=== PATIENT | female | born 1970 | race Caucasian/White ===

== ENCOUNTER 2024-06-09 09:11 | Inpatient (IN) | payer OTHER, SELFPAY ==
[2024-06-09] VITALS (9 sets, daily range): BP systolic 107–148; BP diastolic 56–93; PULSE 62–94; RESP 16–18; TEMP 35.9–37.1; O2SAT 92–100; BMI 31.7
--- NOTE | ~2024-06-09 | CT_ITS ---
EXAMINATION: CT ABDOMEN AND PELVIS WITHOUT CONTRAST CLINICAL INFORMATION: Right flank pain. COMPARISON: None available. TECHNIQUE: Multidetector volumetric imaging was performed from the superior aspect of the liver through the pubic symphysis. Sagittal and coronal reformatted images were obtained on the technologist's workstation. This CT examination was performed using dose optimization techniques as appropriate, variously including the following: *Automated exposure control *Adjustment of mA and/or kV according to patient size (this includes techniques or standardized protocols for targeted exams where dose is matched to indication/reason for exam; i.e. extremities or head) *Use of iterative reconstruction technique DLP: 572 mGy-cm FINDINGS: Inadequate evaluation of the intra-abdominal solid organs and vascular structures due to lack of IV contrast. LUNG BASES: 1 mm calcified nodule, left lung base likely granuloma. Subsegmental atelectasis, right middle lung lobe and lingula. No acute airspace disease in the included lung bases. LIVER, GALLBLADDER, AND BILIARY TREE: Liver measures 14 cm. There are least 2 hypodensities in the parenchyma of the largest measures 1.5 cm. 2 cm, peripheral calcified/onnion-shaped intraluminal lesion, gallbladder. No gross pericholecystic fluid collection or gallbladder wall thickening. No intrahepatic or extrahepatic biliary ductal dilatation. PANCREAS: No peripancreatic fluid collection. No main pancreatic ductal dilatation. SPLEEN: Measures 6 cm. ADRENAL GLANDS: No nodular lesions. KIDNEYS AND URETERS: Right kidney: There is a cluster of 1 mm maximum diameter and 5 mm maximal craniocaudal length dimension calculi/calculus distal right ureter near the vesicoureteral junction. There is hydroureteronephrosis, mild to moderate. Left kidney: No hydronephrosis. No nephrolithiasis. BLADDER: Fluid-filled nearly collapsed. GASTROINTESTINAL TRACT: Appendix is normal. Abundant stool. No intestinal obstruction pattern. No ascites. No pneumoperitoneum. No pneumatosis intestinalis. ABDOMINAL WALL: Small fat-containing umbilical hernia and diastases abdominal rectus muscles. LYMPH NODES: Specific prominent lymph nodes, mesenteric, retroperitoneum and inguinal. VASCULAR: No aneurysm, abdominal aorta. PELVIC VISCERA: No gross masses in the adnexa. OSSEOUS STRUCTURES: Spondylosis, L4-5 and L5-S1 levels. Calcification in the posterior intervertebral disc L5-S1. Sclerosis of the sacroiliac joints and vacuum phenomenon. CT/CT abdomen pelvis wo IV con IMPRESSION: 1 x 5 mm obstructing calculus distal right ureter resulting in vgud-ta-xcclwypt right hydroureteronephrosis. Cholelithiasis. Small fat-containing umbilical hernia. Nonspecific hypodense lesions in the liver. Statistically may represent cyst versus hamartoma versus hemangioma. Fleischner guidelines were followed. Electronically signed by: Bruce Quintanilla MD 06/09/2024 11:57 AM [facility]
[2024-06-09 09:39] LABS: MANUAL DIFF FLAG NO
[2024-06-09 09:41] LABS: Appearance Urine Turbid; Color Urine Dark Yellow; Glucose Urine UA Negative (Negative); Leukocyte Esterase Urine Small (1+) (Negative); Nitrite Urine Negative (Negative); PH 5.5 (5.0-9.0); Specific Gravity - Urine >= 1.030 (1.005-1.025); UMIC TRIGGER UACC YES; Urine Blood Large (3+) (Negative); Urine Ketones Trace mg/dL (Negative); Urine Protein 30 (1+) mg/dL (Neg-Trace)
[2024-06-09 09:45] LABS: Basophils Absolute Auto 0.1 X10*3/uL (0.0-0.2); Basophils Percent Auto 0.7 % (0-2); Eosinophils Absolute Auto 0.1 X10*3/uL (0.0-0.4); Eosinophils Percent Auto 1.2 % (0-4); Hematocrit 37.7 % (37.0-47.0); Hemoglobin 12.7 g/dl (12.0-16.0); Imm Gran Abs Auto 0.01 X10*3/uL (0.00-0.03); Imm Gran Pct Auto 0.1 % (0.0-0.4); Lymphocytes Percent Auto 26.1 % (20-40); Mean Corpuscular HGB Conc 33.7 g/dl (31.0-35.0); Mean Corpuscular Hemoglobin 29.3 pg (27.0-33.0); Mean Corpuscular Volume 86.9 fL (80.0-98.0); Mean Platelet Volume 10.4 fL (9.4-12.3); Monocytes Absolute Auto 0.6 X10*3/uL (0.1-1.2); Monocytes Percent Auto 8.2 % (2-11); Neutrophils Absolute Auto 4.9 x10*3/uL (2.0-8.3); Neutrophils Percent Auto 63.7 % (45-73); Platelet Count 320 X10*3/uL (160-400); Red Blood Count 4.34 X10*6/uL (4.20-5.50); Red Cell Distribution Width 12.4 % (11.0-16.0); White Blood Count 7.7 X10*3/uL (4.8-10.8)
[2024-06-09 09:49] LABS: Bacteria Urine 4+ (None Seen); Calcium Oxalate Crystals Urine Present; RBC Urine >20 /HPF (0-2); Squamous Epithelial Cell Urine >20 /HPF (0-2); UACC Culture Trigger YES
[2024-06-09 10:03] LABS: Alanine Aminotransferase 34 U/L (0-31); Albumin Level 4.2 g/dL (3.5-5.0); Alkaline Phosphatase 65 U/L (39-117); Anion Gap 10 (12-20); Aspartate Amino Transferase 30 U/L (5-31); Bilirubin Total 0.7 mg/dL (0.0-1.0); Blood Urea Nitrogen 13 mg/dL (9-16); Calcium 9.6 mg/dL (8.4-10.2); Carbon Dioxide 26 mmol/L (22-29); Chloride 106 mmol/L (96-108); Estimated Glomerular Filt Rate > 60; Glucose Random 101 mg/dL (60-115); Potassium 3.9 mmol/L (3.3-5.1); Sodium 138 mmol/L (135-145); Total Protein 7.6 g/dL (6.5-8.0)
--- NOTE | 2024-06-09 10:17 | ED.ABDPAIN ---
HPI - Abdominal Pain General Chief Complaint: Abdominal Pain Stated Complaint: lower abd pain Time Seen by Provider: 06/09/24 10:01 Source: patient and RN notes reviewed Mode of arrival: ambulatory Limitations: no limitations History of Present Illness ED Provider: Mila Tam PA-C HPI narrative: This is a 53-year-old female, with a history of ADHD, who presents emergency department with complaints of right flank pain which started yesterday. Patient states that her symptoms have been waxing and waning in severity, thought it was gas at 1st however states that the pain has been increasingly more painful and more regular. She states that she does have some urinary frequency and urgency. Denies history of kidney stones in the past. No history of abdominal surgeries in the past. She endorses nausea, no vomiting. No fevers, chills, chest pain, shortness of breath. Denies any other complaints or concerns at this time. MD elicited complaint: abdominal pain and flank pain Pain Consistency: constant Exacerbating factors: nothing Relieving factors: nothing Related Data Allergies Allergy/AdvReac Type Severity Reaction Status Date / Time No Known Allergies Allergy Verified 06/09/24 09:20 Review of Systems Review of Systems Yes all other systems are reviewed and are negative Constitutional: Reports as per [facility] Social History Social History Advance Directives: No Advance Directives Information Provided: Yes Do you have a plan to hurt others: No Plan Physical Exam ED Vital Signs: Vital Signs - 24 hr 06/09/24 09:17 06/09/24 11:17 Temperature 97.3 F Pulse Rate 87 69 Respiratory Rate 18 18 Blood Pressure 127/93 H 148/66 H Pulse Oximetry 99 100 Oxygen Delivery Method Room Air BMI result Body Mass Index 31.7 Const Other: Writhing in pain, appears to be uncomfortable secondary to pain in right flank General: cooperative Orientation/consciousness: patient oriented x3 Limitations: no limitations HENMT Head: Yes normal to inspection, Yes normocephalic and Yes atraumatic Ears: hearing grossly normal bilaterally General nose exam: Normal external nose present Face and sinus: Yes normal facial exam Mouth: Normal oral and palatal mucosa present, oropharynx normal and moist mucous membranes Throat: Yes posterior oropharynx normal Eyes General: appearance normal, both eyes and all related structures Eyelids: Yes eyelids normal Conjunctivae: conjunctivae normal Sclerae: sclerae normal Pupils: Equal, round and reactive pupils present EOM: EOMs intact bilaterally Neck Neck: Yes normal visual inspection, Yes full ROM and Yes no lymphadenopathy Lymphatic: no lymphadenopathy noted Chest Chest palpation & inspection: normal inspection of the chest Resp Effort & Inspection: normal respiratory effort and able to speak in complete sentences Auscultation: clear to auscultation bilaterally, no crackles, no rales, no rhonchi and no wheezes Cardio Rate: regular rate Rhythm: regular rhythm Heart sounds: S1 normal heart sound present and S2 normal heart sound present GI Other: Abdomen is soft with tenderness palpation along the right flank, no rebound or guarding Inspection: Yes normal to inspection Skin General skin exam: no rashes or lesions noted Trauma: no lacerations or abrasions Wounds: no wounds Neuro General: patient oriented x3 and moves all extremities Cranial nerves: Yes Equal, round and reactive pupils present Extrem General: Yes normal to inspection Right upper extremity: normal to inspection Left upper extremity: normal to inspection Right lower extremity: normal to inspection Left lower extremity: normal to inspection Course Reevaluation(s) Reevaluation #1: Patient re-evaluated, still having significant pain, will re medicate however awaiting repeat blood pressure. Time: 10:57 Reevaluation #2: Patient medicated with Dilaudid 1 mg IV; preliminary read of CT scan revealing a large ? Mass versus stone within the gallbladder, I reviewed this with my attending physician, Dr. Reyes who recommends reaching out to on-call surgeon prior to official report. We will continue to closely monitor. Time: 11:33 Reevaluation #3: Patient is resting comfortably, awaiting official radiology report. Time: 11:58 Additional Reevaluation(s): 06/09/2024 - 1209 - 1x5mm obstructing calculus distal right ureter resulting in mild to moderate right hydrourteronephrosis, cholelithiasis, small fat containing umbilical hernia, and nonspecific hypodense lesion in the liver, may represent cyst cerus hamartoma vs hemangioma. Dr. Hurtado reports nothing to do gallbladder at this time. 1252 - reached out to Dr. Gibbs for recommendations. Patient medicated with IV Toradol secondary to ongoing pain. 1400 - still have yet to hear back from urology for recommendations, reached out to hospitalist as patient needs to be admitted for intractable pain, hospitalist recommending Urology admission as hospitalist services overloaded and would likely be more appropriate to be admitted through the Urologic Services. Sent 2nd message out to Dr. Gibbs awaiting response. 1528 - I spoke to Dr. Hillman, who will add on a cystoscopy this evening. Patient made NPO. Admitted to the urologic service. Medical Decision Making Medical Decision Making [facility] Narrative: This is a 53-year-old female who presents emergency department with complaints of right flank pain, and nausea starting yesterday. On arrival, vital signs within normal limits, she was afebrile, she appears to be uncomfortable secondary to right-sided flank pain. Difficult to get on initial HPI given severity of pain, medicated with morphine 4 mg and Zofran 4 mg. Plan: Labs, UA, CT abdomen pelvis Differential Diagnosis Differential Diagnoses: The differential diagnosis associated with the presentation includes Obstructive uropathy, nephrolithiasis, acute cystitis Admission/Observation Consideration of admission/observation: Escalation of care including admission/observation considered Lab Data [facility] Lab Attestation statement: I reviewed the patient's lab results. No leukocytosis, stable H&H, liver transaminases within normal limits 06/09/24 09:27 06/09/24 09:27 Labs: Lab Results 06/09/24 06/09/24 Range/Units 09:27 09:34 WBC 7.7 (4.8-10.8) X10*3/uL RBC 4.34 (4.20-5.50) X10*6/uL Hgb 12.7 (12.0-16.0) g/dl Hct 37.7 (37.0-47.0) % MCV 86.9 (80.0-98.0) fL MCH 29.3 (27.0-33.0) pg MCHC 33.7 (31.0-35.0) g/dl RDW 12.4 (11.0-16.0) % Plt Count 320 (160-400) X10*3/uL MPV 10.4 (9.4-12.3) fL Immature Gran % (Auto) 0.1 (0.0-0.4) % Neut % (Auto) 63.7 (45-73) % Lymph % (Auto) 26.1 (20-40) % [place] % (Auto) 8.2 (2-11) % Eos % (Auto) 1.2 (0-4) % Baso % (Auto) 0.7 (0-2) % Lymph # (Auto) 2.0 (1.2-4.9) X10*3/uL [place] # (Auto) 0.6 (0.1-1.2) X10*3/uL Eos # (Auto) 0.1 (0.0-0.4) X10*3/uL Baso # (Auto) 0.1 (0.0-0.2) X10*3/uL Abs Immat Gran (auto) 0.01 (0.00-0.03) X10*3/uL Absolute Neuts (auto) 4.9 (2.0-8.3) x10*3/uL Absolute Nucleated RBC 0.000 (0.0-0.012) X10*3/uL Nucleated RBC % (auto) 0.0 (0.0-0.2) /100WBC Sodium 138 (135-145) mmol/L Potassium 3.9 (3.3-5.1) mmol/L Chloride 106 (96-108) mmol/L Carbon Dioxide 26 (22-29) mmol/L Anion Gap 10 L (12-20) BUN 13 (9-16) mg/dL Creatinine 0.79 (0.5-1.4) mg/dL Estim Creat Clear Calc 85.0 Estimated GFR > 60 Random Glucose 101 (60-115) mg/dL Calcium 9.6 (8.4-10.2) mg/dL Total Bilirubin 0.7 (0.0-1.0) mg/dL AST 30 (5-31) U/L ALT 34 H (0-31) U/L Alkaline Phosphatase 65 (39-117) U/L Total Protein 7.6 (6.5-8.0) g/dL Albumin 4.2 (3.5-5.0) g/dL Lipase 21 (8-78) U/L Urine Color Dark Yellow Urine Appearance Turbid Urine pH 5.5 (5.0-9.0) Ur Specific [place] >= 1.030 H (1.005-1.025) Urine Protein 30 (1+) H (Neg-Trace) mg/dL Urine Glucose (UA) Negative (Negative) mg/dL Urine Ketones Trace (Negative) mg/dL Urine Blood Large (3+) H (Negative) Urine Nitrite Negative (Negative) Ur Leukocyte Esterase Small (1+) H (Negative) Urine RBC >20 H (0-2) /HPF Urine WBC 11-20 H (0-5) /HPF Ur Squamous Epith Cells >20 (0-2) /HPF Calcium Oxalate Crystal Present Urine Bacteria 4+ (None Seen) Hyaline Casts 6-10 (0-2) /LPF Radiology Impression Discussion of test interpretation with radiology: I have reviewed the radiologist's reading. External Record Review External record reviewed: Inpatient record, Office record, Outpatient record, Prior outpatient labs, Prior outpatient radiology, Primary care record and Outside ED record Medications Administered Discontinued Medications Generic Name Dose Route Start Last Admin Trade Name Freq PRN Reason Stop Dose Admin Hydromorphone HCl 1 mg 06/09/24 10:58 06/09/24 11:19 Hydromorphone Hcl 1 Mg/Ml Syringe IVPUSH 06/09/24 10:59 1 mg ONCE ONE Administration Protocol Sodium Chloride 1,000 mls @ 999 mls/hr 06/09/24 10:22 06/09/24 10:31 Ns IV 06/09/24 11:22 999 mls/hr .Q1H1M ONE Administration Ketorolac Tromethamine 15 mg 06/09/24 12:55 06/09/24 13:43 Ketorolac Tromethamine 15 Mg/Ml Vial IVPUSH 06/09/24 12:56 15 mg ONCE ONE Administration Metoclopramide HCl 10 mg 06/09/24 12:39 06/09/24 13:43 Metoclopramide Hcl 10 Mg/2 Ml Vial IVPUSH 06/09/24 12:40 10 mg ONCE ONE Administration Morphine Sulfate 4 mg 06/09/24 10:21 06/09/24 10:31 Morphine Sulfate 4 Mg/Ml Cartridge IVPUSH 06/09/24 10:22 4 mg ONCE ONE Administration Protocol Ondansetron HCl 4 mg 06/09/24 10:21 06/09/24 10:32 Ondansetron Hcl 4 Mg/2 Ml Vial IVPUSH 06/09/24 10:22 4 mg ONCE ONE Administration Critical Care Time Critical Care Time Critical Care Time: Yes Total Critical Care Time: 35 Attestation: I have personally provided critical care time exclusive of time spent on separately billable procedures. Time includes review of lab data, radiology results, discussion with consultants, and monitoring for potential decompensation. Intervention performed as documented. Discharge Plan Discharge Clinical Impression: Calculus of distal right ureter, Hydronephrosis, Abnormal CT of the abdomen Patient Disposition: Admitted As Inpatient Print Language: [place]
[2024-06-09] MEDS: 0.9 % Sodium Chloride 1,000 ML 999 ML IV (10:31)
[2024-06-09] MEDS: Morphine Sulfate 4 MG/ML CARTRIDGE IVPUSH (10:31)
[2024-06-09] MEDS: ondansetron HCL 4 MG/2 ML VIAL IVPUSH ×2 (10:32→18:49)
[2024-06-09] MEDS: HYDROmorphone HCl 1 MG/ML SYRINGE IVPUSH (11:19)
[2024-06-09 11:57] LABS: Lipase 21 U/L (8-78)
[2024-06-09] MEDS: Metoclopramide HCl 10 MG/2 ML VIAL IVPUSH (13:43)
[2024-06-09] MEDS: Ketorolac Tromethamine 15 MG/ML VIAL IVPUSH (13:43)
--- NOTE | 2024-06-09 16:00 | PC.NURSE ---
report given to BAND MAKERREN Adorno
[2024-06-09] MEDS: Ketorolac Tromethamine 30 MG/ML VIAL IVPUSH (16:17)
[2024-06-09] MEDS: Lactated Ringers 1,000 ML 125 ML IVCONT (16:17)
--- NOTE | 2024-06-09 16:51 | PC.NURSE ---
MD Hillman to bedside discussing cystoscopy in OR
--- NOTE | 2024-06-09 17:00 | PHA.MEDREC ---
Addendum entered by Lio Sharpe [facility] 06/09/24 17:59: Med rec reviewed Original Note: Pharmacy Consult ? Medication Reconciliation Pharmacy has completed the medication reconciliation. Confirmed medications with patient. Patient confirmed she is taking Gabapentin 300mg caps and states she is taking it once daily instead of BID and states shes been doing it like that for a while . She confirmed her Estradiol Patch once every 2 weeks and states she is due for it tomorrow. She confirmed her Vyvanse 60mg tabs and states she takes roughly 1/2 tab to 1 tablet as needed and she took a 1/2 tab yesterday. She confirmed her Metformin 500mg tab but stated too she is only using it for the weight gain from the Abilify so she only takes a 1/2 tablet of that BID. She confirmed she still takes the Abilify 5mg tab but only takes a half a tablet when needed for her mood. She confirmed she still takes the Naltrexone and states she takes 3mg once daily. I have no claims for Naltrexone, I spoke with the patient about that and she claims it was either filled at [facility] in [place] or [facility] in [place], I called and spoke to [facility] in [place] and they stated they no claims for Naltrexone for that patient, I called and spoke with [facility] and they have no claims for at least 2 years with them. She claims she has not started the Memantine 7mg tab but has them at home. She stated she takes Fish oil, Magnesium 600mg, CoQ10 and Vitamin D3 5000iu for OTC medications but states she is not consistent with taking them everyday and she hasn't really taken any of them in a few days. She claims she takes took a half tablet of the Metformin 500mg tab this morning, she took the Xiidra, Vvyanse, Progesterone, Gabapentin and Naltrexone yesterday and the rest of them she was unsure about.
--- NOTE | 2024-06-09 17:07 | PM.UROCN ---
History of Present Illness Consult details Consult date: 06/09/24 Narrative: CC: Distal right ureteric stone with hydronephrosis 53-year-old female Presents with intermittent history of right flank pain Reach crescendo this morning Associated nausea but no vomiting Initial thought was that had been related constipation. Did complain of some urgency and frequency No history of kidney stones Imaging - CT There is a cluster of 1 mm maximum diameter and 5 mm maximal craniocaudal length dimension calculi/calculus distal right ureter near the vesicoureteral junction.There is hydroureteronephrosis, mild to moderate. Cholelithiasis Recommend cystoscopy, right retrograde, right ureteroscopy with laser lithotripsy and stent placement Review of Systems Constitutional: Constitutional: Reports as per HPI and Reports no additional constitutional complaints Cardiovascular: Cardiovascular: Reports as per HPI and Reports no additional cardiovascular complaints Respiratory: Respiratory: Reports as per HPI and Reports no additional respiratory complaints Gastrointestinal: Gastrointestinal: Reports as per HPI and Reports no additional gastrointestinal complaints Genitourinary: Genitourinary: Reports as per HPI Musculoskeletal: Musculoskeletal: Reports no additional musculoskeletal complaints and Reports as per HPI Neurologic: Reports system reviewed and no additional complaints, except as documented and Reports as per HPI PMFSH Social History Social History Smoked in Last 30 Days: No Advance Directives: No Advance Directives Information Provided: Yes Do you have a plan to hurt others: No Plan Patient : No Meds Allergies Allergy/AdvReac Type Severity Reaction Status Date / Time No Known Allergies Allergy Verified 06/09/24 09:20 Active Medications: Current Medications Acetaminophen (Acetaminophen 325 Mg Tablet) 650 mg PO Q6H PRN PRN Reason: Pain, Mild (Pain Scale 1-3), fever or headache Calcium Carbonate (Calcium Carbonate 750 Mg Tab.Chew) 750 mg PO Q4H PRN PRN Reason: Heartburn Lactated Ringer's (Lr) 1,000 mls @ 125 mls/hr IVCONT .Q8H [facility] Last Admin: 06/09/24 16:17 Dose: 125 mls/hr Magnesium Hydroxide (Milk Of Magnesia 30 Ml Oral.Susp) 30 ml PO DAILY PRN PRN Reason: Constipation Melatonin (Melatonin 3 Mg Tablet) 6 mg PO BEDTIME PRN PRN Reason: Insomnia Sodium Chloride (0.9 % Sodium Chloride Flush 3 Ml Syringe) 3 ml IVFLUSH QSHIFT [facility] Last Admin: 06/09/24 16:31 Dose: Not Given Home Medications ?Medication ?Instructions ?Recorded ?Confirmed ?Last Taken ?Type aripiprazole 5 mg tablet 5 mg PO DAILY PRN Psychosis 06/09/24 06/09/24 Unknown History cholecalciferol (vitamin D3) 125 125 mcg PO DAILY 06/09/24 06/09/24 Unknown History mcg (5,000 unit) tablet (Vitamin D3) clonazepam 1 mg tablet 1 mg PO BEDTIME PRN Anxiety 06/09/24 06/09/24 Unknown History coQ10 (ubiquinol) 100 mg capsule 100 mg PO DAILY 06/09/24 06/09/24 Unknown History estradiol 0.025 mg/24 hr 1 patch topical 2XW 06/09/24 06/09/24 05/27/24 History semiweekly transdermal patch gabapentin 300 mg capsule 300 mg PO BID 06/09/24 06/09/24 06/08/24 History lifitegrast 5 % eye drops in a 1 drp ophthalmic (eye) BID 06/09/24 06/09/24 06/08/24 History dropperette (Xiidra) lisdexamfetamine 60 mg chewable 30 - 60 mg PO QAM 06/09/24 06/09/24 06/08/24 History tablet magnesium 200 mg tablet 600 mg PO DAILY 06/09/24 06/09/24 Unknown History metformin 500 mg tablet 250 mg PO BID 06/09/24 06/09/24 06/09/24 History naltrexone 1.5 mg capsule 3 mg PO DAILY 06/09/24 06/09/24 06/08/24 History omega 4-brv-icr-fish oil 300 1 cap PO DAILY 06/09/24 06/09/24 Unknown History mg-1,000 mg capsule (Fish Oil) progesterone micronized 100 mg 100 mg PO DAILY 06/09/24 06/09/24 06/08/24 History capsule Physical Exam Vital Signs: Vital Signs: Last Vital Signs Temp 98.1 F 06/09/24 16:00 Pulse 62 06/09/24 16:00 Resp 16 06/09/24 16:00 BP 117/56 L 06/09/24 16:00 Pulse Ox 98 06/09/24 16:00 O2 Del Method Room Air 06/09/24 16:00 BMI result Body Mass Index 31.7 Const: General: cooperative, healthy appearing, comfortable and no acute distress Orientation/consciousness: patient oriented x3 HEENT: Face and sinus: Yes normal facial exam Mouth: moist mucous membranes Neck: Neck: Yes normal visual inspection, Yes full ROM and Yes trachea midline Chest: Chest palpation & inspection: normal inspection of the chest Resp: Effort & Inspection: normal respiratory effort, able to speak in complete sentences and no respiratory distress GI: Inspection: Yes normal to inspection Back/Spine/Pelvis: Cervical Spine: normal cervical lordosis Thoracic/Lumbar Spine: thoracic and lumbar spine normal to inspection Skin: General skin exam: no rashes or lesions noted Neuro: General: patient oriented x3, tone normal and moves all extremities Extrem: General: Yes normal to inspection and Yes capillary refill normal Results Labs 06/09/24 09:27 06/09/24 09:27 Labs: Abnormal lab results 06/09/24 06/09/24 Range/Units 09:27 09:34 Anion Gap 10 L (12-20) ALT 34 H (0-31) U/L Ur Specific [place] >= 1.030 H (1.005-1.025) Urine Protein 30 (1+) H (Neg-Trace) mg/dL Urine Blood Large (3+) H (Negative) Ur Leukocyte Esterase Small (1+) H (Negative) Urine RBC >20 H (0-2) /HPF Urine WBC 11-20 H (0-5) /HPF Short CBC 06/09/24 Range/Units 09:27 WBC 7.7 (4.8-10.8) X10*3/uL Hgb 12.7 (12.0-16.0) g/dl Hct 37.7 (37.0-47.0) % Plt Count 320 (160-400) X10*3/uL BMP 06/09/24 09:27 Sodium 138 Potassium 3.9 Chloride 106 Carbon Dioxide 26 BUN 13 Creatinine 0.79 Calcium 9.6 Liver Function 06/09/24 Range/Units 09:27 Total Bilirubin 0.7 (0.0-1.0) mg/dL AST 30 (5-31) U/L ALT 34 H (0-31) U/L Alkaline Phosphatase 65 (39-117) U/L Albumin 4.2 (3.5-5.0) g/dL Urine 06/09/24 Range/Units 09:34 Urine Color Dark Yellow Urine Appearance Turbid Urine pH 5.5 (5.0-9.0) Ur Specific [place] >= 1.030 H (1.005-1.025) Urine Protein 30 (1+) H (Neg-Trace) mg/dL Urine Glucose (UA) Negative (Negative) mg/dL All other labs normal. Assessment and Plan (1) Calculus of distal right ureter: Status: Acute (2) Hydronephrosis: Status: Acute Plan Ureteroscopy We discussed the nature of the decision and reasonable alternatives for performing ureteroscopy. Options such as medical therapy were discussed. Interventions include chemical dissolution, ESWL, ureteroscopy with laser lithotripsy and stent placement, PCNL. The relative uncertainties and benefits related to each alternate procedure were adequately discussed. General surgical risks including, but not limited to - pain, bleeding, infection, myocardial infarction, pulmonary embolus, deep vein thrombosis and cerebrovascular accident which may result in further hospitalization were discussed. Full disclosure of the procedure as well as all major risks, benefits and complications were discussed including but not limited to damage to the urethra, bladder and kidney infection, damage to the ureter, stent migration or malposition, scarring to the renal pelvis, remnant stone fragments, subsequent stone passage with need for secondary procedures. The overall secondary procedure rate is approximately 10-15%. The overall clearance rate is approximately 90-95%. Success of the procedure in the short-term does not necessarily guarantee that long-term success will be maintained. Suitable follow up will need to be maintained. The patient showed understanding of discussion and wishes to proceed with - cystoscopy, retrograde, ureteroscopy, possible lithotripsy/stone basketing and stent on the right side Procedures Date of Service Date of Service: 06/09/24
--- NOTE | 2024-06-09 18:25 | PC.NURSE ---
pt requests pain, and nausea kya Hillman notified via [employer] connect
[2024-06-09] MEDS: Morphine Sulfate 2 MG/ML CARTRIDGE IVPUSH (18:49)
--- NOTE | 2024-06-09 18:56 | PC.NURSE ---
pt medicated per MAR
--- NOTE | 2024-06-09 21:49 | PC.NURSE ---
Anesthesiology at bedside- pt was seen drinking powerade by PACU nurse. pt NPO. Per PACU earliest pt will go to OR is 2300
--- NOTE | 2024-06-09 22:14 | PC.NURSE ---
pt transported to OR by ED staff
[2024-06-09] MEDS: levoFLOXacin/D5W 500 MG/100 ML PIGGYBACK 100 MG IV (22:23)
--- NOTE | 2024-06-09 22:25 | MHC.SHP ---
Pre-Procedural Eval Section A - 24 Hr Update-Section A only Date of Service: 06/09/24 The patient is an INPATIENT: Yes Changes since office visit: No Cold of Flu in the past 2 weeks, No New Medical Problems, No Changes in Medication and No Patient answered all questions The patient has been examined within 24 hours of the surgical procedure. The History & Physical has been completed within 30 days and I have reviewed it.: Yes Section B - Complete if H&P > 30 days Chief Complaint: ureteric stones Allergies: Allergies Allergy/AdvReac Type Severity Reaction Status Date / Time No Known Allergies Allergy Verified 06/09/24 09:20 Plan I have reviewed the history and physical and performed a pertinent physical examination on my patient. No changes have occurred unless specified. Time Spent With Patient Time: Total time managing care of this patient today ____ minutes.
--- NOTE | 2024-06-09 23:00 | P.OP_ITS ---
Operative Note Operative Note Date of Service: 06/09/24 Narrative: PreOperative Diagnosis: Distal right ureteric stone with hydroureteronephrosis Post Operative Diagnosis: Distal right ureteric stones with hydroureteronephrosis Procedure: - cystoscopy, right retrograde - right dilatation of ureteric orifice under fluoroscopy - right ureteroscopy, stone basketing - right stent placement Surgeon: Dr Bereket Hillman Anesthesia: General Indications for procedure: Presentation through emergency room with distal right ureteric stones and proxim al hydroureteronephrosis Procedure: After informed consent was verified the patient was brought to the operating room and placed in a supine position. Anesthesia was administered per protocol. The patient was placed in a modified dorsal lithotomy position and prepped and draped in a sterile fashion. Safety pause time-out and side of surgery were confirmed. Images were available for review. Antibiotic administration confirmed. A 22 [place] cystoscope was inserted per urethra. The urethra was without abnormality. The bladder was normal in its entirety. Both ureteric orifices were seen in normal position . The right ureteric orifice was cannulated and a retrograde examination was performed. Filling defects seen with proximal right ureteric hydronephrosis . A Sensor guidewire was placed up to the level of the renal pelvis under fluoroscopy. The rigid cystoscope was removed. A Ramona dilator was placed over the Sensor guidewire and used to dilate the ureteric orifice under fluoroscopy. The dilator was removed. The semi rigid ureteral scope was placed alongside the Sensor guidewire. It appeared that the stones had been broken with passage of the [place] dilator. Decision was made to remove fragments. Stone fragments were removed from the ureter using a basket. Once the fragments were removed a decision was made to place a ureteric stent. Based on the height of the patient a 6 Fr x 22 stent was used. The string was removed from the stent prior to placement The rigid cystoscope was backloaded over the wire and advanced into the bladder. A 6 [place] by 22 cm double-J stent was placed into the renal pelvis and bladder under a combination of fluoroscopy and direct visualization. The bladder was emptied at which point further fragments of stones were recovered. The patient tolerated the procedure well and was extubated in the operating room. They were transferred in stable condition to the recovery area. Pathology: stones Drains: Double J stent as described above
--- NOTE | 2024-06-09 23:19 | P.CONAN_ITS ---
[facility] Active Problems Active Problems: All Active Problems (Updated 06/09/24 @ 15:31 by RUSLAN Gaitan) Abnormal CT of the abdomen (Acute) Hydronephrosis (Acute) Calculus of distal right ureter (Acute) Family History Family history of problems with anesthesia: No Surgical History History of Problems with Anesthesia: No Meds Allergies Allergy/AdvReac Type Severity Reaction Status Date / Time No Known Allergies Allergy Verified 06/09/24 09:20 Active Medications: Current Medications Acetaminophen (Acetaminophen 325 Mg Tablet) 650 mg PO Q6H PRN PRN Reason: Pain, Mild (Pain Scale 1-3), fever or headache Acetaminophen (Acetaminophen 325 Mg Tablet) 975 mg PO TID ON LICENSE OF [facility] Calcium Carbonate (Calcium Carbonate 750 Mg Tab.Chew) 750 mg PO Q4H PRN PRN Reason: Heartburn Lactated Ringer's (Lr) 1,000 mls @ 125 mls/hr IVCONT .Q8H ON LICENSE OF [facility] Last Admin: 06/09/24 16:17 Dose: 125 mls/hr Levofloxacin (Levaquin) 500 mg in 100 mls @ 100 mls/hr IV PREOP ONE Stop: 06/09/24 23:24 Magnesium Hydroxide (Milk Of Magnesia 30 Ml Oral.Susp) 30 ml PO DAILY PRN PRN Reason: Constipation Melatonin (Melatonin 3 Mg Tablet) 6 mg PO BEDTIME PRN PRN Reason: Insomnia Oxycodone HCl (Oxycodone Hcl Immed Release 5 Mg Tablet) 5 mg PO Q4H PRN PRN Reason: Pain, Mild (Pain Scale 1-3) Sodium Chloride (0.9 % Sodium Chloride Flush 3 Ml Syringe) 3 ml IVFLUSH QSHIFT ON LICENSE OF [facility] Last Admin: 06/09/24 16:31 Dose: Not Given Home Medications ?Medication ?Instructions ?Recorded ?Confirmed ?Last Taken ?Type aripiprazole 5 mg tablet 2.5 mg PO DAILY PRN Psychosis 06/09/24 06/09/24 Unknown History cholecalciferol (vitamin D3) 125 125 mcg PO DAILY 06/09/24 06/09/24 Unknown History mcg (5,000 unit) tablet (Vitamin D3) clonazepam 1 mg tablet 1 mg PO BEDTIME PRN Anxiety 06/09/24 06/09/24 Unknown History coQ10 (ubiquinol) 100 mg capsule 100 mg PO DAILY 06/09/24 06/09/24 Unknown History estradiol 0.025 mg/24 hr 1 patch topical 2XW 06/09/24 06/09/24 05/27/24 History semiweekly transdermal patch gabapentin 300 mg capsule 300 mg PO DAILY 06/09/24 06/09/24 06/08/24 History lifitegrast 5 % eye drops in a 1 drp ophthalmic (eye) BID 06/09/24 06/09/24 06/08/24 History dropperette (Xiidra) lisdexamfetamine 60 mg chewable 30 - 60 mg PO QAM 06/09/24 06/09/24 06/08/24 History tablet magnesium 200 mg tablet 600 mg PO DAILY 06/09/24 06/09/24 Unknown History metformin 500 mg tablet 250 mg PO BID 06/09/24 06/09/24 06/09/24 History naltrexone 1.5 mg capsule 3 mg PO DAILY 06/09/24 06/09/24 06/08/24 History omega 2-ulv-sof-fish oil 300 1 cap PO DAILY 06/09/24 06/09/24 Unknown History mg-1,000 mg capsule (Fish Oil) progesterone micronized 100 mg 100 mg PO DAILY 06/09/24 06/09/24 06/08/24 History capsule Exam Height,Weight and Vital Signs: Height 5 ft 3 in Weight 81.2 kg Last Vital Signs Temp 96.6 F L 06/09/24 23:13 Pulse 87 06/09/24 23:13 Resp 16 06/09/24 23:13 BP 107/66 06/09/24 23:13 Pulse Ox 100 06/09/24 23:13 O2 Del Method Room Air 06/09/24 23:13 Pertinent Lab Results Pertinent Lab Results: Laboratory Tests 06/09/24 06/09/24 09:27 09:34 WBC 7.7 RBC 4.34 Hgb 12.7 Hct 37.7 MCV 86.9 MCH 29.3 MCHC 33.7 RDW 12.4 Plt Count 320 MPV 10.4 Immature Gran % (Auto) 0.1 Neut % (Auto) 63.7 Lymph % (Auto) 26.1 [place] % (Auto) 8.2 Eos % (Auto) 1.2 Baso % (Auto) 0.7 Lymph # (Auto) 2.0 [place] # (Auto) 0.6 Eos # (Auto) 0.1 Baso # (Auto) 0.1 Abs Immat Gran (auto) 0.01 Absolute Neuts (auto) 4.9 Absolute Nucleated RBC 0.000 Nucleated RBC % (auto) 0.0 Sodium 138 Potassium 3.9 Chloride 106 Carbon Dioxide 26 Anion Gap 10 L BUN 13 Creatinine 0.79 Estim Creat Clear Calc 85.0 Estimated GFR > 60 Random Glucose 101 Calcium 9.6 Total Bilirubin 0.7 AST 30 ALT 34 H Alkaline Phosphatase 65 Total Protein 7.6 Albumin 4.2 Lipase 21 Urine Color Dark Yellow Urine Appearance Turbid Urine pH 5.5 Ur Specific [place] >= 1.030 H Urine Protein 30 (1+) H Urine Glucose (UA) Negative Urine Ketones Trace Urine Blood Large (3+) H Urine Nitrite Negative Ur Leukocyte Esterase Small (1+) H Urine RBC >20 H Urine WBC 11-20 H Ur Squamous Epith Cells >20 Calcium Oxalate Crystal Present Urine Bacteria 4+ Hyaline Casts 6-10 Airway Mallampati Class: II TM Dist: >3cm Neck ROM: Full Assessment and Plan Assessment Anesthesia Assessment: Anesthesia Plan Discussed and Chart Reviewed Final Anesthetic Review Family History of Problems with Anesthesia: No History of Problems with Anesthesia: No NPO: Yes ASA Class: II and Emergency Final Preanesthetic Review: No Changes in Pt Med Stat, Meds/Allgs Chart Reviewed, Consent Obtained/Reviewed, Anes Risks/Benef Reviewed and DNR Form (If Appl.) Patient Risk: Low Procedure Risk: Low Anesthetic Plan Anesthetic Plan: GA Disposition: Standard PACU
[2024-06-09] MEDS: Phenazopyridine HCL 100 MG TABLET PO (23:31)
[2024-06-10 00:15] VITALS: BP 135/83; PULSE 83; RESP 21; TEMP 36.4; O2SAT 91
[2024-06-10] MEDS: 0.9 % Sodium Chloride Flush 3 ML SYRINGE IVFLUSH (00:28)
[2024-06-10] MEDS: Acetaminophen 325 MG TABLET 975 MG PO ×2 (00:28→08:16)
[2024-06-10] MEDS: Lactated Ringers 1,000 ML 125 ML IVCONT ×2 (00:31→08:20)
[2024-06-10 00:41] VITALS: BMI 32.4
[2024-06-10 04:00] VITALS: BP 102/43; PULSE 66; RESP 22; TEMP 36.2; O2SAT 98
[2024-06-10 07:04] VITALS: BP 101/51; PULSE 63; RESP 18; TEMP 36.8; O2SAT 96
--- NOTE | 2024-06-10 08:24 | MHC.CM.PN ---
CM met with Patient at bedside. CM sent a referral to [facility] [employer] because the face sheet said, self pay. 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 Her PCP/IMAGING SCHEDULER is Mar Steinberg. Patient lives in a house with her , and 3 Children, ages 24,18, 14 years of age.Home/self care is the goal and CM has initiated and will follow for dc planning. Patient's car is here for self-transport to home.CM will follow.
[2024-06-10 11:01] VITALS: BP 102/51; PULSE 66; RESP 18; TEMP 36.8; O2SAT 98
--- NOTE | 2024-06-10 12:19 | P.DS_ITS ---
DS: Providers Provider Date of Service: 06/10/24 Date of admission: 06/09/24 15:13 Primary care physician: Unknown Physician DS: Diagnosis Discharge Diagnosis (1) Calculus of distal right ureter: Status: Acute (2) Hydronephrosis: Status: Acute DS: Summary Hospital Course Hospital Course: Admit 06/09/2024 Underwent right ureteroscopy with stone removal and stenting Status at Discharge Functional status at discharge: independent ambulation Overall status at discharge: patient is back to baseline Time Attestation Discharge Coordination Time (in mins): 15 Quality: Safe Use of Opioids Does Pt have an Active Cancer Diagnosis on the Problem List?: No Quality: Stroke Does the patient have a stroke diagnosis?: No Physical Exam Vital Signs: Vital Signs: Last Vital Signs Temp 98.3 F 06/10/24 11:01 Pulse 66 06/10/24 11:01 Resp 18 06/10/24 11:01 BP 102/51 L 06/10/24 11:01 Pulse Ox 98 06/10/24 11:01 O2 Del Method Room Air 06/10/24 11:01 O2 Flow Rate 4 06/09/24 23:28 BMI result Body Mass Index 32.4 DS: Data Data Completed and Pending Pending studies at discharge: Pending at discharge 06/09/24 22:56 Surgical [PTH] Routine Imaging CT scan - abdomen: Attestation: I personally reviewed and interpreted this imaging study as follows: Radiologist's impression: ITS Impressions Abdomen/Pelvis CT 06/09/24 10:21 IMPRESSION: 1 x 5 mm obstructing calculus distal right ureter resulting in epyl-op-ntlyrqeb right hydroureteronephrosis. Cholelithiasis. Small fat-containing umbilical hernia. Nonspecific hypodense lesions in the liver. Statistically may represent cyst versus hamartoma versus hemangioma. Fleischner guidelines were followed. Electronically signed by: Bruce Quintanilla MD 06/09/2024 11:57 AM [facility] Discharge Plan Discharge Anticipated Discharge Date/Time: 06/10/24 12:20 Patient Disposition: Home, Self-Care Discharge Diagnosis: Distal right ureteric stone with hydroureteronephrosis Referrals: Physician,Unknown J [Primary Care Provider] - 1 Week Discharge Medications: New tamsulosin 0.4 mg capsule 0.4 mg PO BEDTIME 14 Days Qty: 14 0RF phenazopyridine [Pyridium] 100 mg tablet 100 mg PO TID PRN (Reason: Spasm) 4 Days Qty: 12 0RF naproxen 500 mg tablet 500 mg PO BID PRN (Reason: pain) 7 Days Qty: 14 0RF Continued metformin 500 mg tablet 250 mg PO BID clonazepam 1 mg tablet 1 mg PO BEDTIME PRN (Reason: Anxiety) progesterone micronized 100 mg capsule 100 mg PO DAILY estradiol 0.025 mg/24 hr patch semiweekly 1 patch topical 2XW Xiidra 5 % dropperette 1 drp ophthalmic (eye) BID lisdexamfetamine 60 mg tablet,chewable 30 - 60 mg PO QAM gabapentin 300 mg capsule 300 mg PO DAILY aripiprazole 5 mg tablet 2.5 mg PO DAILY PRN (Reason: Psychosis) naltrexone 1.5 mg Capsule 3 mg PO DAILY magnesium 200 mg Tablet 600 mg PO DAILY cholecalciferol (vitamin D3) [Vitamin D3] 125 mcg (5,000 unit) Tablet 125 mcg PO DAILY omega 4-men-htv-fish oil [Fish Oil] 300-1,000 mg Capsule 1 cap PO DAILY coQ10 (ubiquinol) 100 mg Capsule 100 mg PO DAILY Discharge Orders: Discharge Order (Routine); Ordered 06/10/24 Ordered By: Bereket Hillman Diet: Advance to usual diet Activity on Discharge: As tolerated Stand Alone Forms: Patient Portal Discharge page Print Language: Japanese Care Plan Goals: Stones Health Concerns: Stones Plan of Treatment: Stones Assessment: Stones Patient Instructions: Ureteral Stones (DC)
--- NOTE | 2024-06-10 12:26 | MHC.CM.PN ---
Patient has been medically cleared for dc to home today, self care.
[2024-06-17 19:03] LABS: Stone Source RIGHT URETERAL STONE
== END 2024-06-10 13:59 | disposition home or self-care (01) | DRG 446 ==
LOC: HO.ED 15:31 → HO.EDOVER 15:45 → HO.IMC 23:34
PROVIDERS: Physician Assistant Medical; Admitting Provider Urology; Emergency Provider Emergency Medicine; PCP Nurse Practitioner Family; Visit Provider Urology
PROC: 0TC68ZZ Extirpation of Matter from Right Ureter, Via Natural or Artificial Opening Endoscopic (ICD-10-PCS; principal; 2024-06-09 20:10)
DX: N13.2 Hydronephrosis with renal and ureteral calculous obstruction (principal); F90.9 Attention-deficit hyperactivity disorder, unspecified type; Z79.84 Long term (current) use of oral hypoglycemic drugs; Z79.899 Other long term (current) drug therapy
CPT/HCPCS: 36415; 74176; 80053; 81001; 82365; 83690; 85025; 87086; 88300; 99285; C1758; C1769; C2617; J0131; J1100; J1171; J1885; J1956; J2003; J2250; J2270; J2405; J2704; J2765; J3010; J7120; Q9967

== ENCOUNTER → 2024-06-09 10:21 | Outpatient (BNV) | payer SELFPAY | PROVIDERS: Emergency Provider Emergency Medicine; Visit Provider Radiology Diagnostic Radiology | DX: N13.2 Hydronephrosis with renal and ureteral calculous obstruction (principal); K80.20 Calculus of gallbladder without cholecystitis without obstruction | CPT/HCPCS: 74176 ==

== ENCOUNTER → 2024-06-09 15:13 | Outpatient (BNV) | payer SELFPAY | PROVIDERS: Admitting Provider Urology; Emergency Provider Emergency Medicine; Visit Provider Urology | DX: N20.1 Calculus of ureter (principal); N13.30 Unspecified hydronephrosis | CPT/HCPCS: 52332; 52352; 74420; 99222; 99238 ==

== ENCOUNTER 2024-06-16 13:16 | Outpatient (AMB) | payer OTHER, SELFPAY ==
--- NOTE | 2024-06-16 13:17 | A.OFFVIS_ITS ---
Intake Visit Reasons: stent removal Intake Note: Patient is present for Cystoscopy/Stent Removal Urology Med: Tamsulosin Antibiotic Allergy: None Blood Thinner: None URO GHD Disposable Cystoscope LOT:[id number] EXP: 08/29/2026 Refueling [place] Required: No Accompanied by: Self / Same As Patient Allergies No Known Allergies Allergy (Verified 06/16/24 13:21) HPI Comments Details: Gila is a pleasant female. She is seen for the following urologic conditions - nephrolithiasis here for cystoscopy stent removal nephrolithiasis here for cystoscopy stent removal recent admission with right side distal ureteric stone postoperative course associated with urinary tract infection treated with p.o. antibiotics Imaging CT - There is a cluster of 1 mm maximum diameter and 5 mm maximal craniocaudal length dimension calculi/calculus distal right ureter near the vesicoureteral junction Stone composition - Calcium Oxalate Dihydrate ([place]) 60%Calcium Oxalate Monohydrate ([place]) 20%Carbonate Apatite ([place]) 20% PFSH Social History Household Members: Spouse and Children Housing: House Do you presently have visiting nurse or other home services: No Patient Tobacco Use Status: Never used Tobacco service: No Review of Systems Const Denies chills and Denies fever(s) Card Reports no additional complaints and Denies syncope Resp Denies cough GI Denies abdominal pain and Denies heartburn Reports as per HPI and Denies change in libido Neuro Denies syncope Psych Denies change in libido Endo Denies change in libido Physical Exam Const General: cooperative, healthy appearing, comfortable and no acute distress Orientation/consciousness: patient oriented x3 HEENT Face and sinus: Yes normal facial exam Mouth: moist mucous membranes Neck Neck: Yes normal visual inspection, Yes full ROM and Yes trachea midline Chest Chest palpation & inspection: normal inspection of the chest Resp Effort & Inspection: normal respiratory effort, able to speak in complete sentences and no respiratory distress GI Inspection: Yes normal to inspection Back/Spine/Pelvis Cervical Spine: normal cervical lordosis Thoracic/Lumbar Spine: thoracic and lumbar spine normal to inspection Skin General skin exam: no rashes or lesions noted Neuro General: patient oriented x3, gait normal, tone normal and moves all extremities Extrem General: Yes normal to inspection and Yes capillary refill normal Office Procedures Cystoscopy Consent Discussed risk and benefit or proposed procedure with the patient. Information consent for procedure given to the patient. Discussed technical aspects, risks, benefits and alternatives in full. Addressed all of the patient's questions and concerns regarding the procedure. The patient demonstrated knowledge and understanding. They wish to proceed with this procedure. Preparation The patient was prepped in the usual manner. A inspecting and testing lead hand was present and in the room. Genitalia was prepped with betadine solution in a sterile manner. Lidocaine Jelly 2% was placed into the urethra and 16Fr flexible Olympus cystosc ope was inserted into the meatus after adequate lubrication. Procedure A well lubricated 16 [place] cystoscope was placed No abnormality noted of urethra during placement Indwelling stent seen within bladder emerging from right ureteric orifices The stent was grasped with a 3 prong grasper and removed without difficulty The patient tolerated the procedure well 37412-[id number] with stent removal DISPOSABLE SCOPE URO-G FLEXIBLE SCOPE Procedure code (CPT) selection complete Office Meds lidocaine HCl 2 % mucosal jelly in applicator Performing Provider: Bereket Hillman MD Performing Location: [facility] Administered by: JACQUES Dela Cruz on 06/16/24 13:38 Dose Route Admin Location Dispensed Lot Number Expiration Date [facility] [employer] 10 mL intra-urethral 10 mL Comments: Administered by Dr Hillman nitrofurantoin monohydrate/macrocrystals 100 mg capsule Performing Provider: Bereket Hillman MD Performing Location: [facility] Administered by: JACQUES Dela Cruz on 06/16/24 13:38 Dose Route Admin Location Dispensed Lot Number Expiration Date [place] [employer] 100 mg PO 1 cap Comments: Administered by Dr Hillman naproxen 500 mg tablet Performing Provider: Bereket Hillman MD Performing Location: [facility] Administered by: JACQUES Dela Cruz on 06/16/24 13:38 Dose Route Admin Location Dispensed Lot Number Expiration Date [place] [employer] 500 mg PO 1 tab Comments: Administered by Dr Hillman Results AMB Urinalysis, Automated UA Leukoctes 15 Billy/uL Last Edit by JACQUES Dela Cruz on 06/16/24 13:39 UA Nitrite Negative Last Edit by JACQUES Dela Cruz on 06/16/24 13:39 UA Urobilinogen 0.2 mg/dL Last Edit by Kalyani Nava, RMA on 06/16/24 13:3 9 UA Protein 15 mg/dL Last Edit by Kalyani Nava, RMA on 06/16/24 13:39 UA pH 7.0 Last Edit by Kalyani Nava, RMA on 06/16/24 13:39 UA Blood 200 Marco/uL Last Edit by Kalyani Nava, RMA on 06/16/24 13:39 UA Specific [place] 1.015 Last Edit by Kalyani Nava, RMA on 06/16/24 13: 39 UA Ketone Negative Last Edit by Kalyani Nava, RMA on 06/16/24 13:39 UA Bilirubin 0 mg/dL Last Edit by Kalyani Nava, RMA on 06/16/24 13:39 UA Glucose 0 mg/dL Last Edit by Kalyani Nava, RMA on 06/16/24 13:39 Results Reviewed Results Reviewed: Laboratory Last Values Urine pH (Auto) 7.0 06/16/24 13:22 Specific [place] (Auto) 1.015 06/16/24 13:22 Urine Protein (Auto) 15 mg/dL 06/16/24 13:22 Glucose (UA)(Auto) 0 mg/dL 06/16/24 13:22 Urine Ketones (Auto) Negative 06/16/24 13:22 Urine Blood (Auto) 200 Marco/uL 06/16/24 13:22 Urine Nitrite (Auto) Negative 06/16/24 13:22 Urine Bilirubin (Auto) 0 mg/dL 06/16/24 13:22 Urine Urobilinogen (Auto) 0.2 mg/dL 06/16/24 13:22 Leukocyte Esterase (Auto) 15 Billy/uL 06/16/24 13:22 Assessment & Plan Assessment & Plan (1) Ureteric calculus: Code(s): N20.1 - Calculus of ureter Category: Medical Plan 3m f/u imaging Orders: Orders US renal BI 3 Months N20.1 - Calculus of ureter AMB Urinalysis Automated 06/16/24 Z13.9 - Encounter for screening, unspecified AMB Cystoscopy 06/16/24 N20.1 - Calculus of ureter Patient Instructions: Imaging studies, laboratory and physical exam results were discussed and reviewed in detail. No major barriers to patient understanding were identified. An opportunity to ask questions regarding the treatment plan was provided. All questions were answered. The patient expressed understanding and agreement with the above treatment plan. The patient is aware they should contact our office by phone for worsening of their current condition or the appearance of new urologic symptoms. Compliance is encouraged with any medications and followup testing that is ordered. It is a privilege to participate in the urologic care of your patient. If you have any questions or concerns regarding treatment for the above conditions, or other urologic issues, please do not hesitate to contact me. The office telephone contact is [phone]. This note is constructed using voice recognition software. While every effort has been made to ensure accuracy weight reduction specialist errors may have been included. Yours sincerely, Dr Bereket Hillman MD, SG [facility] - Urology Providers of Expert, Compassionate Care for the Genitourinary System Coding Level of Care Code Est Pt Level 3 (65090) Diagnoses Ureteric calculus N20.1 CPT Codes Cystoscopy - CPT: 33756-[id number] with stent removal ([id number])
== END 2024-06-16 14:20 | disposition home or self-care (01) ==
PROVIDERS: Visit Provider Urology
DX: N20.1 Calculus of ureter (principal)
CPT/HCPCS: 52310

== ENCOUNTER → 2024-06-16 13:16 | Outpatient (BNVA) | payer OTHER, SELFPAY | PROVIDERS: Visit Provider Urology | DX: Z48.816 Encounter for surgical aftercare following surgery on the genitourinary system (principal) | CPT/HCPCS: 52310; 81003 ==

== ENCOUNTER 2024-09-10 13:05 | Outpatient (REF) | payer OTHER, SELFPAY ==
--- NOTE | ~2024-09-10 | US_ITS ---
CLINICAL HISTORY: N20.1 - Calculus of ureter US Renal Comparison: None Findings: Right kidney normal size and echotexture, 10.4 cm length. Left kidney normal size and echotexture, 12.4 cm length. IMPRESSION: 1. Normal kidneys. This document has been electronically signed by: Jagjit Cat MD on 09/11/2024 06:02:51
--- OUTSIDE RECORDS SUMMARY | 2024-09-10 13:12 | XMS_ITS ---
Author Organization [facility] Address [address] [place] [address] Care Team Providers Care Digester Capper Name Role Phone Debby Plaza Primary Care Provider [phone] Terrell Provider Unavailable Unavailab le [facility]AS[facility] FOR VISIT [facility] En[facility] Medications Medication SIG (Take, Route, Frequency, Duration) Notes Start Date End Date Status Vyvanse 60 MG 1 cap(s) orally once a day (in the morning) for 30 day(s) 03/17/2023 Active Gabapentin 100 MG 1 cap(s) orally once a day for 30 day(s) prn 10/23/2022 Not-Taking Naltrex 4.5 MG 1 ORALLY ONCE A DAY for 90 DAYS *Please review and pick correct strength-formulati on from [employer] options. If intended option is not shown, discontinue and re-order from Quick Search* Active Xiidra eye drops *Pleas e review and pick correct strength-formulati on from Medispan options. If intended option is not shown, discontinue and re-order from Quick Search* Active Cevimeline HCl for dry mouth *Please review and pick correct strength-formulati on from Medispan options. If intended option is not shown, discontinue and re-order from Quick Search* Unknown Vyvanse 60 MG 1 TAB(S) CHEWED ONCE A DAY (IN THE MORNING) for 30 DAY(S) *Please review and pick correct strength-formulati on from Medispan options. If intended option is not shown, discontinue and re-order from Quick Search* 06/15/2023 Active guanFACINE HCl ER 1 MG 1 tab(s) orally twice a day for 30 days Active Abilify 5 MG 1 tab(s) orally once a day for 30 days 04/18/2023 Active clonazePAM 1 MG 1 tab(s) orally 1 daily prn anxiety for 30 days 04/18/2023 Active metFORMIN HCl 500 MG 1 tab(s) orally 2 times a day for 30 days 04/18/2023 Active Amphetamine-Dextro amphetamine 20 MG tab(s) orally 1/2 twice a day for 30 days 04/18/2023 Active Gabapentin 300 MG 1 cap(s) orally 2 times a day for 30 days 10/23/2022 Active Encounters Encounter Location Date Provider Diagnosis [facility] [address] [place], [place] [address] 01/19/2024 Provider [facility] Post-traumatic stress disorder, chronic F43.12 ; ADHD, combined type F90.2 and Bipolar disorder, unspecified F31.9 Assessments Encounter Date Diagnosis (ICD Code) Assessment Notes Treatment Notes Treatment Clinical Notes Section Notes 01/19/2024 Post-traumatic stress disorder, chronic (ICD-10 - F43.12) 01/19/2024 ADHD, combined type (ICD-10 - F90.2) 01/19/2024 Bipolar disorder, unspecified (ICD-10 - F31.9) Plan Of Treatment Medication Medication Name Sig Start Date Stop Date Notes Vyvanse 60 MG 1 TAB(S) CHEWED ONCE A DAY (IN THE MORNING) for 30 DAY(S) 06/15/2023 *Please review and p ick correct strength-formulation from [employer] options. If intended option is not shown, discontinue and re-order from Quick Search* guanFACINE HCl ER 1 MG 1 tab(s) orally twice a day for 30 days Abilify 5 MG 1 tab(s) orally once a day for 30 days 04/18/2023 clonazePAM 1 MG 1 tab(s) orally 1 daily prn anxiety for 30 days 04/18/2023 metFORMIN HCl 500 MG 1 tab(s) orally 2 times a day for 30 days 04/18/2023 Amphetamine-Dextroamph etamine 20 MG tab(s) orally 1/2 twice a day for 30 days 04/18/2023 Gabapentin 300 MG 1 cap(s) orally 2 times a day for 30 days 10/23/2022 Progress Notes * Brenna NAVASOB:[birth year] (53 yo F)Acc No.[id number]:01/19/2024 Patient:Gila RESENDEZ Provider:? :1970???Age:53 Y???Sex:Female D ate:01/19/2024 Address:[address] [place] [address] Deb Mckinnon [facility] [address], [id number] Pcp:Debby Plaza Subjective: * Chief Complaints: * ???1. Multum To Medispan Con version Encounter. * Medical History:? * Medications:?Taking Naltrex 4.5 MG CAPSULE COMPOUNDED 1 ORALLY ONCE A DAY , Notes to Pharmacist: *Please review and pick correct strength-formulation from Medispan options. If intended option is not shown, discontinue and re-order from Quick Search*, Taking Xiidra , Notes to Pharmacist: eye drops *Please review and pick correct strength-formulation from Medispan options. If intended option is not shown, discontinue and re-order from Quick Search*, Taking Vyvanse 60 MG Capsule 1 cap(s) orally once a day (in the morning) , Not-Taking/PRN Gabapentin 100 MG Capsule 1 cap(s) orally once a day , Notes to Pharmacist: prn, Unknown Cevimeline HCl , Notes to Pharmacist: for dry mouth *Please review and pick correct strength- formulation from Medispan options. If intended option is not shown, discontinue and re-order from Quick Search* Objective: * Vitals:? Assessment: * Assessment: 1.?Post-traumatic stress dis order, chronic - F43.12?2.?ADHD, combined type - F90.2?3.?Bipolar disorder, unspecified - F31.9? Plan: * Treatment: 2.?ADHD, combined type? Refill Amphetamine-Dextroamphetamine Tablet, 20 MG, tab(s), orally, 1/2 twice a day, 30 days, 60, Refills 0;?Refill Vyvanse TABLET, CHEWABLE, 60 MG, 1 TAB(S), CHEWED, ONCE A DAY (IN THE MORNING), 30 DAY(S), 30, Notes to Pharmacist: *Please review and pick correct strength-formulation from Medispan options. If intended option is not shown, discontinue and re-order from Quick Search*;?Refill guanFACINE HCl ER Tablet Extended Release 24 Hour, 1 MG, 1 tab(s), orally, twice a day, 30 days, 60 Tablet, Refills 1.?? 3.?Bipolar disorder, unspeci fied? Refill Gabapentin Capsule, 300 MG, 1 cap(s), orally, 2 times a day, 30 days, 60, Refills 1;?Start metFORMIN HCl Tablet, 500 MG, 1 tab(s), orally, 2 times a day, 30 days, 60, Refills 1;?Refill Abilify Tablet, 5 MG, 1 tab(s), orally, once a day, 30 days, 30 Tablet, Refills 1.?? * Images: Billing Information: * Visit Code:? * Procedure Codes:? * Sign off status: Completed true * Provider:? Date:?01/19/2024 Generated for Wendy gardner/Peyman/Corieitting on:?09/10/2024 01:12 PM EST
--- OUTSIDE RECORDS SUMMARY | 2024-09-10 13:12 | XMS_ITS ---
[facility] Organization [facility] Address [address] [place] [address] Care Team Providers Care Type Bar And Segment Assembler Name Role Phone Debby Plaza Primary Care Provider [phone] Franci Fajardo [phone] REASON FOR VISIT gabapentin refill request Encounters Encounter Location Date Provider Diagnosis [facility] [address] [place] [address] 08/14/2023 Franci Fajardo Plan Of Treatment No Information Progress Notes * ELOISEDelaneyCachorroOB:[birth year] (52 yo F)Acc No.[id number]:08/14/2023 Patient:?Gila NAVAS :1970???Age:52 Y???Sex:Female Address:[address] [place] [address] Deb Mckinnon [address], [place], [address] * true * Date:? Generated for Wendy gardner/Peyman/eTransmitting on:?09/10/2024 01:12 PM EST
--- OUTSIDE RECORDS SUMMARY | 2024-09-10 13:12 | XMS_ITS | Patient Health Record ---
[facility] Organization [facility] Address [address] [place] [address] Care Team Providers Care Oil Well Driller Name Role Phone Debby Plaza Primary Care Provider Terrell Provider Unavailable Unavailab le Reason For Referral No Information Medications Medication SIG (Take, Route, Frequency, Duration) Notes Start Date End Date Status Vyvanse 60 MG 1 cap(s) orally once a day (in the morning) for 30 day(s) 03/17/2023 Active Gabapentin 100 MG 1 cap(s) orally once a day for 30 day(s) prn 10/23/2022 Not-Taking Vyvanse 60 MG 1 TAB(S) CHEWED ONCE [...] a day for 30 days 04/18/2023 Active Naltrex 4.5 MG 1 ORALLY ONCE A DAY for 90 DAYS *Please review and pick correct strength-formulati on from Medispan options. If intended option is not shown, discontinue and re-order from Quick Search* Active Xiidra eye drops *Plefadia e review and pick correct strength-formulati on from Medispan options. If intended option is not shown, discontinue and re-order from Quick Search* Active Amphetamine-Dextro amphetamine 20 MG tab(s) orally 1/2 twice a day for 30 days 04/18/2023 Active Gabapentin 300 MG 1 cap(s) orally 2 times a day for 30 days 10/23/2022 Active clonazePAM 1 MG 1 tab(s) orally 1 daily prn anxiety for 30 days 04/18/2023 Active metFORMIN HCl 500 MG 1 tab(s) orally 2 times a day for 30 days 04/18/2023 Active Cevimeline HCl for dry mouth *Please review and pick correct strength-formulati on from [employer] options. If intended option is not shown, discontinue and re-order from Quick Search* Unknown Problems Problem Type SNOMED Code ICD Code Onset Dates Problem Status W/U Status Risk Notes Problem Manic bipolar I disorder (02562291) Bipolar disorder, current episode hypomanic (F31.0) Active confirmed Problem Bipolar disorder (35750293) Bipolar disorder, unspecified (F31.9) Active confirmed Problem Posttraumatic stress disorder (81986825) Post-traumatic stress disorder, chronic (F43.12) Active confirmed Problem Attention deficit hyperactivity disorder (559524471) ADHD, combined type (F90.2) Active confirmed Encounters Encounter Location Date Provider Diagnosis [facility] [address] [place] [address] 01/19/2024 Provider [facility] Post-traumatic stress disorder, chronic F43.12 ; ADHD, combined type F90.2 and Bipolar disorder, unspecified F31.9 Assessments Encounter Date Diagnosis (ICD Code) Assessment Notes Treatment Notes Treatment Clinical Notes Section Notes 01/19/2024 Post-traumatic stress disorder, chronic (ICD-10 - F43.12) 01/19/2024 ADHD, combined type (ICD-10 - F90.2) 01/19/2024 Bipolar disorder, unspecified (ICD-10 - F31.9) Plan Of Treatment No Information Insurance Providers Payer Name Payer Address Payer Phone Subscriber Number Group Number Insured Name Patient Relationship to Insured Coverage Start Date Coverage End Date [facility] [address] [place] [address] [phone] [id number] Gila NAVAS Self - patient is the insured 3 Medical (General) History Medical History History ICD Code [facility]
--- OUTSIDE RECORDS SUMMARY | 2024-09-10 13:12 | XMS_ITS ---
[facility] Organization [facility] Address [address] [place] [address] Care Team Providers Care Ship Purser Name Role Phone Debby Plaza Primary Care Provider Franci Fajardo [phone] REASON FOR VISIT aripiprazole refill request Medications Medication SIG (Take, Route, Frequency, Duration) Notes Start Date End Date Status ABILIFY 5 mg 1 tab(s) orally once a day for 30 days 04/18/2023 Active Encounters Encounter Location Date Provider Diagnosis [facility] [address] [place] [address] 08/14/2023 Franci Fajardo Bipolar disorder, unspecified F31.9 Assessments Encounter Date Diagnosis (ICD Code) Assessment Notes Treatment Notes Treatment Clinical Notes Section Notes 08/14/2023 Bipolar disorder, unspecified (ICD-10 - F31.9) Plan Of Treatment Medication Medication Name Sig Start Date Stop Date Notes ABILIFY 5 mg 1 tab(s) orally once a day for 30 days 2022 Progress Notes * Delaney NAVASCachorroOB:[birth year] (52 yo F)Acc No.[id number]:08/14/2023 Patient:?Gila NAVAS :1970???Age:52 Y???Sex:Female Address:[address] [place] [address] Deb Mckinnon [address], [place], [address] * Refills? Refill Abilify tablet, 5 mg, orally, 30 Tablet, 1 tab(s), once a day, 30 days, Refills=1 * true * Date:? Generated for Wendy gardner/Peyman/Yamile on:?09/10/2024 01:12 PM EST
== END 2024-09-10 13:06 | disposition home or self-care (01) ==
LOC: HO.US 13:05
PROVIDERS: Visit Provider Urology
DX: N20.1 Calculus of ureter (principal)
CPT/HCPCS: 76775

== ENCOUNTER → 2024-09-10 13:07 | Outpatient (BNV) | payer OTHER, SELFPAY | PROVIDERS: Visit Provider Specialist | DX: N20.1 Calculus of ureter (principal) | CPT/HCPCS: 76775 ==